=== PATIENT | male | born 1965 | race Caucasian/White ===

== ENCOUNTER → 2018-05-18 09:08 | Outpatient (CLI) | payer BC ==
[2015-04-24 11:50] VITALS: BMI 36.2
[~2018-05-18 09:08] MED LIST: ADIPEX-P37.5 MG; AFRIN15 ML; GLUCOPHAGE500 MG PO; GLUCOSAMINE HC500 MG PO; LISINOPRIL10 MG PO; REVATIO20 MG PO; VITAMIN E1000 UNI1 PO; [UNRECOGNIZED DRUG - REMARK] PO
== END | disposition home or self-care (01) ==
LOC: D.US 09:00
DX: E04.1 Nontoxic single thyroid nodule (principal)

== ENCOUNTER 2018-05-19 09:36 | Day surgery (SDC) | payer BC ==
[~2018-05-19] VITALS: Ht 175.3 cm; Wt 118.2 kg
--- NOTE | ~2018-05-19 | HP ---
PATIENT: MELVINA QURESHI MEDICAL RECORD: [id number] ACCOUNT: [id number] LOCATION:[facility] : 61 ADMISSION DATE: 05/19/18 PCP: JESSICA MERINO DO HISTORY AND PHYSICAL EXAMINATION PREOPERATIVE DIAGNOSIS: History of colon polyps. HISTORY OF PRESENT ILLNESS: The patient last underwent a surveillance colonoscopy back in April of 2015. He has had some minor hematochezia. No abdominal pain. He was recently diagnosed with diabetes. He is here for surveillance endoscopy. The reason for the anesthesia staff being present during the procedure includes sleep apnea. ALLERGIES: No known drug allergies. HOME MEDICATIONS: Please see the nursing list. SOCIAL HISTORY: He dips, but he does not smoke. PAST MEDICAL AND SURGICAL HISTORY: 1. Noninsulin dependent diabetes mellitus. 2. Osteoarthritis. 3. Hypertension. 4. Sleep apnea. 5. History of colon polyps. PHYSICAL EXAMINATION: GENERAL: The patient does not appear acutely ill. He does not appear chronically ill. VITAL SIGNS: Reviewed. HEAD: External ears appear normal. EYES: Extraocular movements are intact. NECK: Trachea is midline. CHEST: No intercostal retractions. PULMONARY: Nonlabored. IMPRESSION: History of colon polyps. PLAN: Will be surveillance colonoscopy. TRANSINT:[id number] Voice Confirmation ID: [id number] DOCUMENT ID: [id number] [place] MD at 1522 CC: JESSICA MERINO DO [id number] DICTATION DATE: 05/19/18 1047 ARCHITECTURAL ENGINEERING TEACHER: 05/19/18 1102 [facility] 05/19/18 [place] [id number] [place] [id number]
--- NOTE | ~2018-05-19 | OP ---
PATIENT NAME: MELVINA QURESHI MEDICAL RECORD: [id number] :61 LOCATION:D.OPS ADMISSION DATE: SURGEON: [place] MD DATE OF OPERATION: 05/19/2018 PREOPERATIVE DIAGNOSIS: History of colon polyps, in need of surveillance colonoscopy. POSTOPERATIVE DIAGNOSES: 1. History of colon polyps, in need of surveillance colonoscopy. 2. Five polyps which were removed and will be sent off for pathology. 3. Abnormal appearance to the ileocecal valve. Rule out a large polyp. 4. Ablation of 2 lesions, one mucosal and one likely submucosal. PROCEDURES: 1. Total colonoscopy to cecum. 2. Hot biopsy forceps polypectomy times 5. 3. Cold endoscopic biopsies of the ileocecal valve. 4. Endoscopic ablation of 2 lesions. SURGEON: Calixto Lkae MD CHEMICAL PLANT OPERATOR SUPERVISOR: None. BLOOD LOSS: Minimal. ANESTHESIA: IV sedation. COMPLICATIONS: None. The risks, possible complications, and alternatives to the procedure were explained to the patient. He elects to proceed. ENDOSCOPIC COURSE: The patient was conveyed to the endoscopy suite electively on 05/19/2018. IV sedation was induced by the anesthesia staff. The patient was placed in the Serrano position. A digital rectal examination was performed. A colonoscope was inserted through the anus. It was easily advanced to the cecum. The prep was adequate. I slowly withdrew the endoscope. A combination of normal imaging and narrow band imaging was utilized. I intubated the ileum, which appeared normal. There were 2 cecal polyps and these were both 5-mm sessile polyps and they were removed utilizing the hot biopsy forceps polypectomy technique. I noted that the ileocecal valve had an abnormal appearance to it and was not symmetric. To the left, I was not sure whether this was prolapsed ileocecal valve that contained a good bit of fat or whether this represented a polyp. Multiple cold endoscopic biopsies were performed of this lesion. If this is indeed a polyp, the patient is going to require either endoscopic mucosal resection in conjunction with the argon plasma adjusto writer operator or a right colectomy. I then continued to withdraw the endoscope. I dragged the folds. Three more polyps were removed and these were all less than 1 cm in greatest dimension and appeared adenomatous. These were all sessile polyps. They were removed utilizing the hot biopsy forceps polypectomy technique for a total of 5 polypectomies. There were 2 other lesions that I ablated. One was what appeared to be a minute polyp. The other had a yellow appearance to it and OPERATIVE REPORT [id number] MELVINA QURESHI likely represents a small submucosal lipoma. These were ablated with the hot biopsy forceps. A retroflexed view was obtained in the rectum. I then unretroflexed the scope and removed it under direct vision. I plan to see the patient in my office in 2-3 weeks. We will need to follow up on the biopsies of the ileocecal valve. If this is indeed an adenomatous polyp, the patient is going to require another colonoscopy and then endoscopic mucosal resection in conjunction with the argon plasma adjusto writer operator versus a right colectomy. TRANSINT:[id number] Voice Confirmation ID: [id number] DOCUMENT ID: [id number] [place] MD at 1522 CC: JESSICA MERINO DO [id number] DICTATION DATE: 05/19/18 1133 ORGANISATIONAL PSYCHOLOGIST: 05/19/18 1307 [facility] 05/19/18 [facility] [address] [place] [address]
[~2018-05-19 09:36] MED LIST changes: -ADIPEX-P37.5 MG; -GLUCOPHAGE500 MG PO; -GLUCOSAMINE HC500 MG PO; -REVATIO20 MG PO; -VITAMIN E1000 UNI1 PO
[2018-05-19] MEDS ORDERED: GLUCOPHAGE500 MG PO (10:21)
[2018-05-19] MEDS ORDERED: VITAMIN E1000 UNI1 PO (10:22)
[2018-05-19] MEDS ORDERED: GLUCOSAMINE HC500 MG PO (10:23)
[2018-05-19] MEDS ORDERED: REVATIO20 MG PO (10:25)
[2018-05-19] MEDS ORDERED: ADIPEX-P37.5 MG (10:26)
[2018-05-19 10:37] VITALS: BP 98/56; Ht 175.3 cm; Wt 118.2 kg
== END 2018-05-19 12:20 | disposition home or self-care (01) ==
LOC: D.OPS 09:36
DX: D12.5 Benign neoplasm of sigmoid colon (principal); K63.5 Polyp of colon; Z86.010 Personal history of colon polyps; G47.30 Sleep apnea, unspecified; E11.9 Type 2 diabetes mellitus without complications; M19.90 Unspecified osteoarthritis, unspecified site; I10 Essential (primary) hypertension; F17.290 Nicotine dependence, other tobacco product, uncomplicated; Z01.812 Encounter for preprocedural laboratory examination